=== PATIENT | female | born 1995 | race Two or more races ===

== ENCOUNTER 2018-12-12 22:09 | Emergency (ER) | payer OTHER ==
[~2018-12-12] VITALS: Ht 167.6 cm; Wt 57.6 kg
[2018-12-12 22:23] VITALS: BP 154/86
== END 2018-12-12 23:10 | disposition home or self-care (01) ==
LOC: ER 22:09
DX: A63.0 Anogenital (venereal) warts (principal); B00.1 Herpesviral vesicular dermatitis; F10.10 Alcohol abuse, uncomplicated; F17.210 Nicotine dependence, cigarettes, uncomplicated; Y90.9 Presence of alcohol in blood, level not specified